=== PATIENT | male | born 1970 | race Caucasian/White ===

== ENCOUNTER 2018-01-12 15:45 | Observation (INO) | payer MEDICARE ==
[2018-01-12 16:17] LABS: #Basophils 0.1 thou/uL (0.0-0.2); #Eosinphils 0.2 thou/uL (0.0-0.7); #Lymphocytes 2.1 thou/uL (1.20-3.40); #Monocytes 0.7 thou/uL (0.11-0.59); #Neutrophils 5.2 thou/uL (1.40-6.50); %Basophils 1.4 % (0.0-1.0); %Eosinophils 2.9 % (0.0-10.0); %Lymphocytes 25.1 % (21.0-51.0); %Monocytes 8.1 % (0.0-10.0); %Neutrophils 62.5 % (42.0-75.0); Hemoglobin 17.1 g/dL (14.0-18.0); Mean Corpuscular HGB CONC 36.1 g/dL (32.0-36.0); Mean Corpuscular Hemoglobin 33.9 pg (27.0-31.0); Mean Corpuscular Volume 93.8 fL (78.0-98.0); Mean Platelet Volume 8.1 fL (7.4-10.4); Platelet Count 199 thou/uL (130-400); Red Blood Cell (RBC) Count 5.03 mill/uL (4.70-6.10); White Blood Cell (WBC) Count 8.3 thou/uL (4.8-10.8)
--- NOTE | 2018-01-12 16:29 | RAD ---
CHEST ONE VIEW: Date: 01-12-18 Time: 4:16 p.m. History: Chest pain. FINDINGS: The heart size is normal. The lungs are expanded with focal areas of consolidation, pneumothoraces or pleural effusions. IMPRESSION: No radiographic evidence of acute cardiopulmonary process. POS: OFF
[2018-01-12 17:05] LABS: ALT (SGPT) 24 U/L (8-55); AST (SGOT) 15 U/L (5-34); Albumin 4.2 g/dL (3.5-5.0); Alkaline Phosphatase 89 U/L (40-150); Anion Gap 11 mmol/L (10-20); BUN (Urea Nitrogen) 12 mg/dL (8.9-20.6); Bilirubin, Total 0.8 mg/dL (0.2-1.2); CK (CPK) 62 U/L (30-200); Calc. Creatinine Clearance 0 mL/min (70-130); Calcium 9.2 mg/dL (7.8-10.44); Carbon Dioxide 22 mmol/L (22-29); Chloride 108 mmol/L (98-107); Estimated GFR-MDRD 79; Globulin 2.9 g/dL (2.4-3.5); Glucose 96 mg/dL (70-105); Lipase 30 U/L (8-78); Potassium 4.1 mmol/L (3.5-5.1); Protein, Total 7.1 g/dL (6.0-8.3); Sodium 137 mmol/L (136-145)
[2018-01-12 17:08] LABS: CKMB 0.5 ng/mL (0-6.6); Troponin I Less than 0.010 ng/mL (< 0.028)
[2018-01-12] MEDS ORDERED: Nitroglycerin 0.4 MG TAB (25 Tab Bottle) ONE (17:48)
[2018-01-12] MEDS ORDERED: Metoclopramide HCl 10 MG/2 ML VIAL ONE (17:59)
--- NOTE | 2018-01-12 19:14 | PDOC.FPRHP ---
- History of Present Illness Chief Complaint: Chest Pain History of Present Illness: Mr Grey is a 47yo male with pmh of HTN, seizures, and paranoid schizophrenia presenting with left substernal chest pain since last night. Reports it feels "like an air bubble under my heart" and "a brick on my chest." At onset of chest pain pt reports diaphoresis and nausea. Improved with burping. Has been constant since onset but waxes and wanes in severity. Reports similar pain but less severe 8 months ago that resolved in a couple days. Reports living alone, he just moved from [place] 3 months ago. Reports not taking his schizophrenia or HTN med for the past 4 days because he hasn't felt like it but ED Course: Trops, EKG, metoclopramide, 1L NS, nitro SL, and aspirin - Allergies/Adverse Reactions Allergies Allergy/AdvReac Type Severity Reaction Status Date / Time morphine Allergy seizures Verified 01/12/18 20:58 Penicillins Allergy Rash Verified 01/12/18 20:58 - Home Medications Medication Instructions Recorded Confirmed Type Divalproex Sodium DR [Depakote] 500 mg PO BID 01/12/18 01/12/18 History Gabapentin 600 mg PO TID 01/12/18 01/12/18 History Paliperidone [Invega] 9 mg PO DAILY 01/12/18 01/12/18 History Zolpidem Tartrate [Ambien] 5 mg PO DAILY 01/12/18 01/12/18 History - History PMHx: HTN, seizures since age 17, schizophrenia PSHx: inguinal hernia repair, left leg/knee surgery and skin graft FHx: reports extensive hx of heart problems on maternal and paternal side Social: smokes 1pk/day for 40 years. Drinks alcohol occasionally. Denies past or current drug use. - Review of Systems General: denies: fever/chills, night sweats ENT: denies: nasal congestion Respiratory: denies: cough, shortness of breath Cardiovascular: reports: chest pain, other (Positive for diaphoresis). denies: palpitation, edema, orthopnea Gastrointestinal: reports: nausea, abdominal pain. denies: vomiting, diarrhea, constipation Genitourinary: denies: dysuria Skin: denies: rashes, lesions Musculoskeletal: denies: pain, swelling Neurological: denies: syncope, weakness Psychological: reports: other (positive for AH/VH) - Vital signs BP: 126/83 HR: 68 RR: 18 Tmax: 98.3 Pox: 98% on RA - Physical Exam Constitutional: NAD, awake, alert and oriented, well developed HEENT: normocephalic and atraumatic, PERRLA, conjunctiva clear, TM's clear and intact, MMM, oropharynx clear -HEENT: missing most teeth Neck: trachea midline, no JVD Heart: RRR, normal S1/S2, pulses present Lungs: CTAB, no respiratory distress Abdomen: soft, non-tender, bowel sounds present Musculoskeletal: normal structure Skin: capillary refill <2 seconds Psychiatric: normal mood and affect FMR H&P: Results - Labs Result Diagrams: 01/12/18 16:06 01/12/18 16:06 Lab results: WBC 8.3 thou/uL (4.8-10.8) 01/12/18 16:06 Hgb 17.1 g/dL (14.0-18.0) 01/12/18 16:06 Hct 47.2 % (42.0-52.0) 01/12/18 16:06 MCV 93.8 fL (78.0-98.0) 01/12/18 16:06 Plt Count 199 thou/uL (130-400) 01/12/18 16:06 Neutrophils % 62.5 % (42.0-75.0) 01/12/18 16:06 Sodium 137 mmol/L (136-145) 01/12/18 16:06 Potassium 4.1 mmol/L (3.5-5.1) 01/12/18 16:06 Chloride 108 mmol/L (98-107) H 01/12/18 16:06 Carbon Dioxide 22 mmol/L (22-29) 01/12/18 16:06 BUN 12 mg/dL (8.9-20.6) 01/12/18 16:06 Creatinine 1.01 mg/dL (0.6-1.3) 01/12/18 16:06 Glucose 96 mg/dL (70-105) 01/12/18 16:06 Calcium 9.2 mg/dL (7.8-10.44) 01/12/18 16:06 Total Bilirubin 0.8 mg/dL (0.2-1.2) 01/12/18 16:06 AST 15 U/L (5-34) 01/12/18 16:06 ALT 24 U/L (8-55) 01/12/18 16:06 Alkaline Phosphatase 89 U/L (40-150) 01/12/18 16:06 Creatine Kinase 62 U/L (30-200) 01/12/18 16:06 CK-MB (CK-2) 0.5 ng/mL (0-6.6) 01/12/18 16:06 Serum Total Protein 7.1 g/dL (6.0-8.3) 01/12/18 16:06 Albumin 4.2 g/dL (3.5-5.0) 01/12/18 16:06 Lipase 30 U/L (8-78) 01/12/18 16:06 - EKG Interpretation EKG: nsr right axis deviation - Radiology Interpretation Chest x-ray Status: report reviewed by me Additional comment: Chest films negative, no infiltrates, no cardiomegaly, no congestive heart failure FMR H&P: A/P - Problem List (1) Chest pain Current Visit: Yes Status: Acute Code(s): R07.9 - CHEST PAIN, UNSPECIFIED (2) HTN (hypertension) Current Visit: No Status: Chronic Code(s): I10 - ESSENTIAL (PRIMARY) HYPERTENSION (3) Seizures Current Visit: No Status: Chronic Code(s): R56.9 - UNSPECIFIED CONVULSIONS (4) Schizophrenia Current Visit: No Status: Chronic Code(s): F20.9 - SCHIZOPHRENIA, UNSPECIFIED Qualifiers: Schizophrenia type: paranoid schizophrenia Qualified Code(s): F20.0 - Paranoid schizophrenia (5) Tobacco abuse Current Visit: Yes Status: Chronic Code(s): Z72.0 - TOBACCO USE - Plan Atypical Chest Pain 2/2 GERD vs MSK vs CAD - Trops neg x2, continue to trend - Mg, Ph, TSH ordered - EKG without ST segment changes - Admit to Tele for observation - Heart score: 4 - NPO at midnight for Stress test in AM HTN - Not regularly taking home meds - BP currently wnl - Will monitor and discuss taking meds if indicated Paranoid schizophrenia - Currently having AH/VH - Denies SI/HI - Reports not taking medication for past 3 days - Also on Valproic Acid - Unknown home med, need to med rec with pharmacy as [place] Seizures - Will check Valproic acid level - Restart home medication, will need med rec for dose Tobacco Abuse - Nicotine patch PRN - Encourage smoking cessation DVT ppx:Lovenox Code status: DNR FMR H&P: Upper Level - Pertinent history 47 yo M who presents with mid-chest pain since yesterday at noon. He reports it started because his "300 lb woman" was yelling at him. Since that time it has been pretty constant with worsening moments. He denies any n/v. He does feel he has gotten clammy at times. He denies and LOC or radiation of pain. He denies association with eating. He has no history of KS, CAD or CHF. He noted that the pain improved from an 8 to 5 with nitro and is also worse with palpation. - Pertinent findings EKG: NSR without ST segment changes Gen: awake, alert, appropriately answering questions though inconsistent answers HEENT: conjuntiva non-injected, poor dentition CV: RRR, pain with palpation of lower sternum RESP: CTAB ABD: soft, nontender, non-distended Ext: no edema - Plan Date/Time: 01/12/181912 47 yo M with atypical chest pain 1. Atypical Chest Pain. DDX includes costochondritis, GERD, CAD. Reproducible with palpation but HEART score of 4 with numerous risk factors including HTN, tobacco abuse and significant family history. Will admit to observation on tele and trend trops. FLP, Mg, Phos and TSH ordered. NPO at [place] for stress in a.m. If chest pain returns, consider GI cocktail. 2. HTN: Reports hx but not regularly taking home meds. Will monitor for need to restart/start new meds. Patient cannot recall his home medication. 3. Paranoid schizophrenia: Denies SI/HI. Will restart invega. Also on depakote for seizures and "mood stability" per patient. 4. Chronic pain from h/o mesh placement: Continue home gabapentin 5. Seizures: Check depakote level and restart home medication. 6. Tobacco abuse: Counseled cessation. Nicotine patch if desired while here. DVT ppx:Lovenox Code status: DNR. Discussed with patient this means no chest compressions, intubation or shock which are his wishes. I, Pau Milian MD, have evaluated this patient and agree with findings/plan as outlined by news internship resident. Pertinent changes/additions are listed here.
[2018-01-12 19:40] LABS: Troponin I Less than 0.010 ng/mL (< 0.028)
[2018-01-12] MEDS ORDERED: Ondansetron ODT 4 MG TAB PO PRN (19:55)
[2018-01-12 21:16] LABS: Magnesium 2.1 mg/dL (1.6-2.6); Phosphorus 2.9 mg/dL (2.3-4.7)
[2018-01-12 21:56] VITALS: BMI 25.0
[2018-01-12 22:37] LABS: Troponin I Less than 0.010 ng/mL (< 0.028)
[2018-01-12] MEDS ORDERED: Divalproex Sodium DR 500 MG TAB PO SCH (23:17)
[2018-01-13] MEDS: Nicotine 21 MG PATCH TD SCH ×2 (00:58→01:00)
[2018-01-13 01:14] LABS: Amphetamine Not Detected (NotDetected); Barbiturates Screen Not Detected (NotDetected); Benzodiazepine Screen Not Detected (NotDetected); Cocaine Metabolite Screen Not Detected (NotDetected); Medtox Control Line Valid? VALID (VALID); Medtox Reader # READER 1; Methadone Not Detected (NotDetected); Methamphetamine Not Detected (NotDetected); Opiate Screen Not Detected (NotDetected); Oxycodone Screen Not Detected (NotDetected); Phencyclidine (PCP) Not Detected (NotDetected); THC/Cannabinoid Screen Not Detected (NotDetected); Tricyclic Screen Not Detected (NotDetected)
--- NOTE | 2018-01-13 06:00 | PDOC.FM ---
- Subjective Subjective: Mr. Grey was resting well in bed this morning. Reports chest pain is of same quality as last night, now 3/10 instead of 8/10 as previously. Burping is only thing that relieves pain. NPO since midnight, awaiting stress test. Reports normal BMs. Denies acid reflux symptoms, dysuria. - Objective MAR Reviewed: Yes Vital Signs & Weight: Vital Signs (12 hours) Temp Pulse Resp BP Pulse Ox 01/12/18 22:02 98.8 F 52 L 18 01/12/18 19:55 98.8 F 52 L 18 123/74 100 Weight Weight 74.661 kg Result Diagrams: 01/13/18 08:07 01/12/18 16:06 Phys Exam - Physical Examination Constitutional: NAD Respiratory: clear to auscultation bilateral (chest not TTP) Cardiovascular: RRR, no significant murmur Gastrointestinal: soft (LUQ/flank tender to palpation), no distention, positive bowel sounds Musculoskeletal: no edema Psychiatric: A&O x 3 Deviation from normal: auditory and visual hallucinations Dx/Plan (1) Chest pain Code(s): R07.9 - CHEST PAIN, UNSPECIFIED Status: Acute (2) Tobacco abuse Code(s): Z72.0 - TOBACCO USE Status: Chronic (3) HTN (hypertension) Code(s): I10 - ESSENTIAL (PRIMARY) HYPERTENSION Status: Chronic (4) Schizophrenia Code(s): F20.9 - SCHIZOPHRENIA, UNSPECIFIED Status: Chronic Qualifiers: Schizophrenia type: paranoid schizophrenia Qualified Code(s): F20.0 - Paranoid schizophrenia (5) Seizures Code(s): R56.9 - UNSPECIFIED CONVULSIONS Status: Chronic - Plan Plan: 47 year old M presenting with chest pain Atypical chest pain - troponins neg x3 - no EKG changes suggestive of ischemia - Heart score 4 - has been NPO since midnight, pending stress test today - UDS neg Hx of HTN - BP wnl since hospitalization - has not been taking home meds Paranoid schizoprenia - having AH/VH, denies SI/HI. Likes having AH/VH - on home paliperidone daily, has not been taking for past 5 days Seizures - valproic acid level 12.5, subtherapeutic. Not taken med for 5 days. - continue home depakote 500 BID Tobacco abuse - encourage smoking cessation Ppx: lovenox Code status: DNR Dispo: discharge today pending stress test
[2018-01-13 08:14] LABS: #Basophils 0.1 thou/uL (0.0-0.2); #Eosinphils 0.3 thou/uL (0.0-0.7); #Monocytes 0.7 thou/uL (0.11-0.59); #Neutrophils 5.3 thou/uL (1.40-6.50); %Basophils 0.8 % (0.0-1.0); %Eosinophils 3.2 % (0.0-10.0); %Lymphocytes 23.6 % (21.0-51.0); %Monocytes 8.8 % (0.0-10.0); %Neutrophils 63.6 % (42.0-75.0); Mean Corpuscular HGB CONC 34.5 g/dL (32.0-36.0); Mean Corpuscular Hemoglobin 32.6 pg (27.0-31.0); Mean Corpuscular Volume 94.3 fL (78.0-98.0); Mean Platelet Volume 8.1 fL (7.4-10.4); Platelet Count 193 thou/uL (130-400); RBC Distribution Width 12.2 % (11.5-14.5); Red Blood Cell (RBC) Count 4.91 mill/uL (4.70-6.10); White Blood Cell (WBC) Count 8.4 thou/uL (4.8-10.8)
[2018-01-13 08:17] VITALS: BP 93/52; TEMP 98
[2018-01-13 08:39] LABS: Anion Gap 9 mmol/L (10-20); BUN (Urea Nitrogen) 12 mg/dL (8.9-20.6); Calc. Creatinine Clearance 107 mL/min (70-130); Calcium 8.9 mg/dL (7.8-10.44); Carbon Dioxide 25 mmol/L (22-29); Cardiac Risk 6.8 (Less than 4.5); Chloride 110 mmol/L (98-107); Cholesterol 184 mg/dl (< 200 Desired); Estimated GFR-MDRD Greater than 90; Glucose 93 mg/dL (70-105); HDL Cholesterol 27 mg/dL (>60 Neg Risk); LDL Cholesterol, Calculated 130 mg/dL; Potassium 4.1 mmol/L (3.5-5.1); Sodium 140 mmol/L (136-145); Triglycerides 135 mg/dL (Less than 150)
[2018-01-13] MEDS ORDERED: Gabapentin 300 MG CAP PO SCH (09:00)
[2018-01-13] MEDS ORDERED: Divalproex Sodium DR 500 MG TAB PO SCH (09:00)
[2018-01-13] MEDS ORDERED: Enoxaparin Sodium 40 MG/0.4 ML SYRINGE SC SCH (09:00)
--- NOTE | 2018-01-13 12:13 | NM ---
MYOCARDIAL PERFUSION SCAN WITH SPECT IMAGING: HISTORY: Chest pain. Hypertension. Smoker. TECHNIQUE: The examination was performed using 33 millicuries technetium 99m sestamibi for stress and 9 millicur ies for rest images. FINDINGS: This shows a normal distribution of the radiopharmaceutical. There are no signs of ischemia or scar. WALL MOTION: There is symmetric contractility to the ventricle. LEFT VENTRICULAR EJECTION FRACTION: The calculated left ventricular ejection fraction is 71%. IMPRESSION: Unremarkable myocardial perfusion scan. POS: KARMEN
--- NOTE | 2018-01-13 13:46 | EKG ---
Test Reason : Blood Pressure : / mmHG Vent. Rate : 076 BPM Atrial Rate : 076 BPM P-R Int : 152 ms QRS Dur : 080 ms QT Int : 378 ms P-R-T Axes : 074 123 052 degrees QTc Int : 425 ms Sinus rhythm with marked sinus arrhythmia Right axis deviation Abnormal ECG Confirmed by VERNELL LÓPEZ, MARIE ([id number]), editorial writer TAMAR MICHAEL ([id number]) on 01/13/2018 1:45:47 PM Referred By: Confirmed By:MARIE MATT MD
--- NOTE | 2018-01-13 14:09 | PRG ---
DATE OF SERVICE: 01/13/2018 Mr. Grey is a 47-year-old white male patient who was admitted with some atypical chest pain. This o ccurred last night at rest, lasted 2 hours. It was associated with "cold sweats." He has had no exe rtional chest discomfort. The pain did not radiate into his arms or jaw. He came to the ER and subs equently was admitted for workup. He has just returned from a stress test nuclear medicine and the r esult has not yet been posted. His troponins have been less than 0.01 x3. His EKG showed no acute ischemic changes. His BMP shows a sodium 140, potassium 4.1, chloride 110, bicarb 25, BUN 12, creatinine 0.89, glucose of 93. Lipids : Triglycerides 135, total cholesterol 184, LDL 130, HDL 27. His TSH normal at 1.1. CBC: White co unt is 8300, hemoglobin 17.1, hematocrit 47.2 with an MCV of 94. Mr. Grey does smoke a pack and rosaura f of cigarettes per day and has since the age of 8. We will await the results of stress nuclear test . If positive, we will consult Cardiology for catheterization. If negative, he will be discharged.
--- NOTE | 2018-01-14 03:09 | DIS-2 ---
DATE OF ADMISSION: 01/12/2018 DATE OF DISCHARGE: 01/13/2018 RESIDENT: Irene Rodriguez DO ADMITTING ATTENDING: Dr. Jacinto Tolentino. DISCHARGE ATTENDING: Dr. Jacinto Tolentino. CONSULTS: None. PROCEDURE: Stress test. PRIMARY DIAGNOSIS: Atypical chest pain. SECONDARY DIAGNOSES: 1. History of hypertension. 2. History of paranoid schizophrenia. 3. Seizures. 4. Tobacco abuse. DISCHARGE MEDICATIONS: 1. Paliperidone 9 mg p.o. daily. 2. Ambien 5 mg p.o. daily. 3. Depakote 500 mg p.o. b.i.d. 4. Gabapentin 600 mg p.o. t.i.d. HISTORY OF PRESENT ILLNESS: The patient presented to the ER with left substernal chest pain for 1 da y. Patient also endorsed diaphoresis and nausea at that time. Pain with atypical on presentation, i mproved with burping only. Pain decreased throughout the course of his hospital stay. He was admitt ed for observation for ACS rule out. Troponins were trended and were negative. No acute changes on EKG. The [place] and does not have a primary care physician here. He reports he has not been taking his home medications for the past 5 days. The patient endorsed aud itory and visual hallucinations during his hospital stay, which he said that he liked having. The pa tient denied any suicidal or homicidal ideations. Valproic acid levels were found to be less than 12 .5, subtherapeutic. Triglycerides 135, cholesterol 184, LDL 130, HDL 27. Other labs were unremarkab le. Patient underwent a stress test on 01/13/2018, which was unremarkable. DISPOSITION: Patient was discharged in stable condition. DISCHARGE INSTRUCTIONS: 1. Location: Home. 2. Diet: Regular. 3. Activity: As tolerated. 4. Followup: Follow up in 1 week to establish care, referred to [facility].
== END 2018-01-13 12:58 | disposition home or self-care (01) ==
LOC: ERS 15:45 → 2SW 19:25
PROVIDERS: ADMIT Family Medicine; ATTEND Family Medicine
DX: R07.89 Other chest pain (principal); F20.0 Paranoid schizophrenia; R56.9 Unspecified convulsions; F17.210 Nicotine dependence, cigarettes, uncomplicated; I10 Essential (primary) hypertension; Z79.899 Other long term (current) drug therapy; Z88.0 Allergy status to penicillin; Z88.5 Allergy status to narcotic agent; Z66 Do not resuscitate
CPT/HCPCS: 71045; 78452; 80048; 80061; 80164; 80306; 82550; 82553; 83690; 83735; 84100; 84484 ×2; 85025; 93005; 93017; 96365; 96372; 99285; A9500; G0378 ×2; 36415; 80053; 84443; J1650; J2765